=== PATIENT | female | born 1985 | race Two or more races ===

== ENCOUNTER → 2017-01-12 | Outpatient (REF) | payer BC ==
[~2017-01-12] MED LIST: MOTR200T44 PO; OSEL75CA PO
== END ==
LOC: M LAB REF 10:03
PROVIDERS: ATTEND Physician Assistant Medical
DX: J02.9 Acute pharyngitis, unspecified (principal)

== ENCOUNTER 2017-01-14 00:58 | Inpatient (IN) | payer BC ==
[~2017-01-14] VITALS: Ht 144.8 cm; Wt 48.9 kg
[2017-01-14] MEDS ORDERED: MOTR200T44 PO (01:21)
[2017-01-14] MEDS ORDERED: OSEL75CA PO (01:21)
[2017-01-14] MEDS ORDERED: LIDOCAINE W/EPINEPHRINE 1% 20ML VIAL As Ordered ONE (01:37)
[2017-01-14] MEDS ORDERED: LIDOCAINE W/EPINEPHRINE 1% 20ML VIAL SC ONE (01:45)
[2017-01-14 03:08] LABS: MEAN CORPUSCULAR HEMOGLOBIN 31.4 pg (27.0-33.0); MEAN CORPUSCULAR HGB CONC 33.6 g/dl (32.0-36.5); MEAN CORPUSCULAR VOLUME 93.6 fl (80.0-96.0); RED CELL DISTRIBUTION WIDTH 11.7 % (11.5-14.5); WHITE BLOOD COUNT 5.7 K/mm3 (4.0-10.0)
[2017-01-14 03:16] LABS: METHADONE URINE NEGATIVE (NEGATIVE)
[2017-01-14 03:48] LABS: ALBUMIN 4.1 GM/DL (3.2-5.2); ALBUMIN/GLOBULIN RATIO 1.03 (1.00-1.93); ALKALINE PHOSPHATASE 69 U/L (45-117); ALT/SGPT 29 U/L (12-78); ANION GAP 11 MEQ/L (8-16); AST/SGOT 36 U/L (15-37); BILIRUBIN,DIRECT < 0.1 MG/DL (0.0-0.2); BILIRUBIN,TOTAL 0.2 MG/DL (0.2-1.0); BLOOD UREA NITROGEN 10 MG/DL (7-18); CALCIUM LEVEL 8.4 MG/DL (8.5-10.1); CARBON DIOXIDE LEVEL 24 MEQ/L (21-32); CHLORIDE LEVEL 110 MEQ/L (98-107); CREATININE FOR GFR 0.63 MG/DL (0.55-1.02); GLOMERULAR FILTRATION RATE > 60.0 (>60); GLUCOSE, FASTING 107 MG/DL (70-105); SODIUM LEVEL 145 MEQ/L (136-145); TOTAL PROTEIN 8.1 GM/DL (6.4-8.2)
[2017-01-14] MEDS ORDERED: OSELTAMIVIR PHOSPHATE 75 MG CAP (TAMIFLU) PO ONE (18:15)
[2017-01-15] MEDS ORDERED: OSELTAMIVIR PHOSPHATE 75 MG CAP (TAMIFLU) PO ONE (05:00)
[2017-01-15 16:07] VITALS: BP 115/78
[2017-01-15] MEDS ORDERED: MOM 30ML SUSPENSION UDC PO PRN (17:45)
[2017-01-15] MEDS ORDERED: MAALOX 30 ML SUSP *UDC PO PRN (17:45)
[2017-01-15] MEDS ORDERED: IBUPROFEN 400 MG TAB PO PRN (17:45)
[2017-01-15] MEDS: TAMIFLU 75 MG PO SCH (21:10)
[2017-01-15] MEDS: traZODone 50 MG TAB PO PRN (22:37)
[2017-01-16 06:00] VITALS: BP_SYST 104; BP_SYST 108; BP_DIAS 58; BP_DIAS 59
[2017-01-16] MEDS: OSELTAMIVIR PHOSPHATE 75 MG CAP (TAMIFLU) PO SCH ×2 (09:00→21:30)
[2017-01-16] MEDS: NICOTINE 7 MG/24 HR TRANSDERMAL TD SCH (09:00)
[2017-01-16] MEDS: TAMIFLU 75 MG PO SCH (09:37)
--- NOTE | 2017-01-16 09:57 | HPEPDOC ---
Medical History and Physical Date of Admission Jan 15, 2017 at 14:02 History and Physical PCP: Sveta Stubbs WHITE KID BUFFER ATTENDING: Dr. Dontae Kaminski HPI: 31yoF admitted to [facility] for depression, being medically examined today. Patient states she was diagnosed with influenza at urgent care January 12 and started Tamiflu January 13. Initially she was experiencing symptoms of chills, headache, sore throat and cough however the symptoms have resolved. She has a laceration on her left robles with 9 sutures intact. There is currently no drainage or erythema. Denies any fevers, chills, weakness, fatigue, PEDRAZA, CP, SOB, cough, palpitations, abdominal pain, N/V/D or changes in bowel or bladder habits. PMHx: Depression Self-mutilation Chronic right knee pain PSHX: 3 prior right knee surgeries for ACL. Follows with [facility]. Uses ibuprofen as needed. MRI of right knee is pending. 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 ROS: As noted in HPI, otherwise 11pt ROS of systems reviewed and remarkable only for LMP 01/15/17 PE: GEN: 31yoF, appears stated age. Well-nourished, well developed. No acute distress. Alert and oriented x 3. Pleasant, interactive. HEENT: Normocephalic, atraumatic. Pupils are equal, round, and reactive to light. Extraocular movements are intact. No nystagmus appreciated. Sclera are nonicteric. Conjunctiva without injection. Nose midline. Nasal turbinates without bogginess. EACs both patent BL. TMs both visualized and mccallum with good cone of light, no bulging or erythema. No facial asymmetry. Moist mucous membranes. Dentition fair. Pharynx pink and moist, no cobblestoning. Neck supple , trachea midline. No lymphadenopathy or thyromegaly appreciated. CHEST: Regular rate and rhythm, +S1, +S2 LUNGS: Clear to auscultation bilaterally. No wheezes, rales, or rhonchi. Breathing appears symmetric and easy. Patient is speaking in full sentences. No accessory muscle use. ABD: Round, soft, non-tender, non-distended. +Bowel sounds throughout. No rebound or guarding. No costovertebral angle tenderness. EXT: Pulses 2+ bilaterally dorsalis pedis and radial. No lower extremity edema appreciated. SKIN: [place], dry, warm. Capillary refill <2sec. No rashes. 9 sutures intact LLE, healing well. NEURO: Alert and oriented x 3. Cranial nerves III-XII are intact. No focal deficits appreciated. EKG: Pending. A&P: 31yoF admitted to [facility] for depression 1. Psych. Plan per Psychiatry. Obtain baseline EKG to assure the safety of psychiatric medications as they can prolong the QT interval. 2. Nicotine dependence. Patch available. 3. Influenza. Finish course of Tamiflu 75 mg by mouth twice a day. 4. Follow up with PCP on discharge. 5. Add HCG to admission labs. 6. Chronic right knee pain. Continue outpatient follow-up with [facility]. Continue ibuprofen as needed. 7. Laceration. 9 Sutures intact. Healing well. Dry dressing. Tdap confirmed with [employer]. 8. Staff member, Patricia OLIVARES, present throughout exam. Vital Signs Vital Signs Label Value Date Time Patient Temperature 96.8 degrees F 01/16/17 0600 Pulse 81 01/16/17 0600 Respiratory Rate 16 bpm 01/16/17 0600 Blood Pressure Assessment 104/59 (74) 01/16/17 0600 Bedside Pulse Oximetry 97 % 01/15/17 1512 Item Value Date Time Oxygen Delivery Method Room Air 01/15/17 1607 Laboratory Data Labs 24H Item Value Date Time Salicylates Level < 1.7 MG/DL L 01/14/17 0302 Urine Opiates Screen NEGATIVE 01/14/17 0131 Urine Methadone Screen NEGATIVE 01/14/17 013 Acetaminophen Level < 2.0 UG/ML L 01/14/17 0302 Urine Barbiturates Screen NEGATIVE 01/14/17 013 Urine Phencyclidine Screen NEGATIVE 01/14/17 013 Urine Amphetamines Screen NEGATIVE 01/14/17 013 Urine Benzodiazepines Screen NEGATIVE 01/14/17 013 Urine Cocaine Metabolite Screen NEGATIVE 01/14/17 013 Urine Cannabinoids Screen NEGATIVE 01/14/17 0131 Ethyl Alcohol Level 0.296 % H 01/14/17 0302 Item Value Date Time White Blood Count 5.7 K/mm3 01/14/17 0302 Red Blood Count 4.35 M/mm3 01/14/17 0302 Hemoglobin 13.7 g/dl 01/14/17 0302 Hematocrit 40.7 % 01/14/17 0302 Mean Corpuscular Volume 93.6 fl 01/14/17 030 Mean Corpuscular Hemoglobin 31.4 pg 01/14/17 030 Mean Corpuscular Hemoglobin Concent 33.6 g/dl 01/14/17 0302 Red Cell Distribution Width 11.7 % 01/14/17 0302 Platelet Count 212 k/mm3 01/14/17 0302 Sodium Level 145 MEQ/L 01/14/17 0302 Potassium Level 4.0 MEQ/L 01/14/17 0302 Chloride Level 110 MEQ/L H 01/14/17 0302 Carbon Dioxide Level 24 MEQ/L 01/14/17 0302 Anion Gap 11 MEQ/L 01/14/17 0302 Blood Urea Nitrogen 10 MG/DL 01/14/17 0302 Creatinine 0.63 MG/DL 01/14/17 0302 Glomerular Filtration Rate > 60.0 01/14/17 0302 Fasting Glucose 107 MG/DL H 01/14/17 0302 Calcium Level 8.4 MG/DL L 01/14/17 0302 Total Bilirubin 0.2 MG/DL 01/14/17 0302 Direct Bilirubin < 0.1 MG/DL 01/14/17 0302 Aspartate Amino Transf (AST/SGOT) 36 U/L 01/14/17 0302 Alanine Aminotransferase (ALT/SGPT) 29 U/L 01/14/17 0302 Alkaline Phosphatase 69 U/L 01/14/17 0302 Total Protein 8.1 GM/DL 01/14/17 0302 Albumin 4.1 GM/DL 01/14/17 0302 Albumin/Globulin Ratio 1.03 01/14/17 0302 Thyroid Stimulating Hormone (TSH) 0.673 uIU/ML 01/14/17 030 Home Medications Scheduled Oseltamivir Phosphate (Tamiflu) 75 Mg Cap 75 MG PO BID STARTED 01/13 FOR 5 DAYS Scheduled PRN Ibuprofen (Motrin Ib) 200 Mg Tab 200 MG PO Q4H PRN PRN PAIN Allergies Coded Allergies: Sertraline (Verified Allergy, Unknown, 01/14/17) Tamia Baldwin Jan 16, 2017 09:57
[2017-01-16 10:17] LABS: CONTROL LINE HCG INT CTR LINE PRESENT
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
[2017-01-16 18:00] VITALS: BP 122/73
[2017-01-16] MEDS: traZODone 50 MG TAB PO PRN (23:09)
--- NOTE | 2017-01-17 00:44 | ECGEPIP ---
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
[2017-01-17 06:00] VITALS: BP 93/57
[2017-01-17] MEDS: NICOTINE 7 MG/24 HR TRANSDERMAL TD SCH (09:00)
[2017-01-17] MEDS: OSELTAMIVIR PHOSPHATE 75 MG CAP (TAMIFLU) PO SCH ×2 (09:23→21:13)
[2017-01-17 18:00] VITALS: BP 108/68
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
--- NOTE | 2017-01-17 22:42 | ECGEPIP ---
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
[2017-01-17] MEDS: traZODone 50 MG TAB PO PRN (23:04)
[2017-01-18 06:21] VITALS: BP 119/83
[2017-01-18] MEDS: NICOTINE 7 MG/24 HR TRANSDERMAL TD SCH (09:00)
[2017-01-18] MEDS ORDERED: NICO7PA TD (11:55)
[2017-01-18 18:00] VITALS: BP 126/88
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
[2017-01-18] MEDS: traZODone 50 MG TAB PO PRN (23:04)
[2017-01-19 06:26] VITALS: BP 104/59
[2017-01-19] MEDS: NICOTINE 7 MG/24 HR TRANSDERMAL TD SCH (08:39)
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
== END 2017-01-19 11:00 | disposition home or self-care (01) | DRG 753 ==
LOC: EDBD 00:58 → M ED 03:54 → M ED INP 01-15 14:02 → M PSY 01-15 16:02
PROVIDERS: ADMIT Psychiatry & Neurology Psychiatry; ATTEND Internal Medicine Addiction Medicine
PROC: 0HQLXZZ Repair Left Lower Leg Skin, External Approach (ICD-10-PCS; principal; 2017-01-15)
DX: F39 Unspecified mood [affective] disorder (principal); F10.10 Alcohol abuse, uncomplicated; F17.210 Nicotine dependence, cigarettes, uncomplicated; S81.812A Laceration without foreign body, left lower leg, initial encounter; X78.9XXA Intentional self-harm by unspecified sharp object, initial encounter; Y92.009 Unspecified place in unspecified non-institutional (private) residence as the place of occurrence of the external cause; F41.9 Anxiety disorder, unspecified; Z63.0 Problems in relationship with spouse or partner; M25.561 Pain in right knee; Z79.1 Long term (current) use of non-steroidal anti-inflammatories (NSAID); Z88.8 Allergy status to other drugs, medicaments and biological substances

== ENCOUNTER → 2017-02-08 | Outpatient (REF) | payer BC ==
[~2017-02-08] MED LIST changes: +NICO7PA TD
== END ==
LOC: M SFHCPLAZ 11:26
PROVIDERS: ATTEND Nurse Practitioner Family
DX: N76.0 Acute vaginitis (principal); N94.9 Unspecified condition associated with female genital organs and menstrual cycle

== ENCOUNTER → 2017-09-24 | Outpatient (CLI) | payer OTHER | LOC: M OUTALCOH 07:37 | PROVIDERS: ATTEND Psychiatry & Neurology Psychiatry | DX: Z13.9 Encounter for screening, unspecified (principal); F10.20 Alcohol dependence, uncomplicated ==

== ENCOUNTER 2017-10-05 10:43 | Outpatient (RCR) | payer OTHER | END 2017-11-04 | LOC: M OUTALCOH 10-11 16:00 | DX: F10.20 Alcohol dependence, uncomplicated (principal) ==

== ENCOUNTER → 2017-10-31 | Outpatient (CLI) | payer OTHER ==
[2017-10-31 16:42] LABS: BASO % 0.1 % (0.0-1.0); EOS # 0.1 10^3/uL (0.0-0.50); EOS % 1.2 % (0.0-3.0); IMMATURE GRANULOCYTE % 0.4 % (0-0); LYMPH # 1.6 10^3/uL (1.5-4.5); LYMPH % 19.8 % (24.0-44.0); MEAN CORPUSCULAR HEMOGLOBIN 30.9 pg (27.0-33.0); MEAN CORPUSCULAR HGB CONC 33.8 g/dl (32.0-36.5); MEAN CORPUSCULAR VOLUME 91.7 fl (80.0-96.0); MONO # 0.4 10^3/uL (0.0-0.8); MONO % 5.1 % (0.0-5.0); NEUTROPHILS # 6.1 10^3/uL (1.8-7.7); NEUTROPHILS % 73.4 % (36.0-66.0); PLATELET COUNT, AUTOMATED 246 10^3/uL (150-450); RED CELL DISTRIBUTION WIDTH 11.8 % (11.5-14.5); WHITE BLOOD COUNT 8.3 10^3/uL (4.0-10.0)
[2017-10-31 18:02] LABS: ERYTHROCYTE SEDIMENTATION RATE 56 mm/hr (0-20)
[2017-11-07 00:06] LABS: Lyme Disease IgG/IgM Antibodie <0.91 ISR (0.00-0.90); Lyme Disease IgM Ab Quantitati <0.80 index (0.00-0.79); T PALLIDUM AB (FTA-AB) Non Reactive (Non Reactive)
== END ==
LOC: M LAB 15:34
DX: H20.013 Primary iridocyclitis, bilateral (principal)
CPT/HCPCS: 82164

== ENCOUNTER 2017-11-06 16:00 | Outpatient (RCR) | payer BC, OTHER, SELFPAY | END 2017-12-05 | LOC: M OUTALCOH 11-07 16:00 | DX: F10.10 Alcohol abuse, uncomplicated (principal); F17.200 Nicotine dependence, unspecified, uncomplicated ==

== ENCOUNTER → 2017-11-20 | Outpatient (CLI) | payer BC | LOC: M WHC 15:26 | DX: Z36.9 Encounter for antenatal screening, unspecified (principal); Z3A.19 19 weeks gestation of pregnancy | CPT/HCPCS: 76811 ==

== ENCOUNTER 2017-12-07 16:33 | Outpatient (RCR) | payer BC, OTHER, SELFPAY | END 2018-01-02 | LOC: M OUTALCOH 16:33 | DX: F10.10 Alcohol abuse, uncomplicated (principal); F17.200 Nicotine dependence, unspecified, uncomplicated ==

== ENCOUNTER → 2018-01-03 | Outpatient (CLI) | payer BC ==
[2018-01-03 08:06] LABS: BASO % 0.1 % (0.0-1.0); EOS # 0.1 10^3/uL (0.0-0.50); HEMOGLOBIN 10.8 g/dl (12.0-16.0); IMMATURE GRANULOCYTE % 1.3 % (0-3.0); LYMPH # 1.5 10^3/uL (1.5-4.5); LYMPH % 16.7 % (24.0-44.0); MEAN CORPUSCULAR HEMOGLOBIN 30.3 pg (27.0-33.0); MEAN CORPUSCULAR HGB CONC 32.7 g/dl (32.0-36.5); MEAN CORPUSCULAR VOLUME 92.7 fl (80.0-96.0); MONO # 0.4 10^3/uL (0.0-0.8); MONO % 4.7 % (0.0-5.0); NEUTROPHILS # 6.7 10^3/uL (1.8-7.7); NEUTROPHILS % 76.2 % (36.0-66.0); PLATELET COUNT, AUTOMATED 229 10^3/uL (150-450); RED BLOOD COUNT 3.56 10^6/uL (4.00-5.40); RED CELL DISTRIBUTION WIDTH 12.2 % (11.5-14.5); WHITE BLOOD COUNT 8.8 10^3/uL (4.0-10.0)
[2018-01-03 08:21] LABS: GLUCOSE CHALLENGE TEST 1 HOUR 135 MG/DL (LESS THAN 140)
[2018-01-03 09:45] LABS: CHLAMYDIA DNA AMPLIFICATION NEGATIVE (NEGATIVE); GC DNA AMPLIFICATION NEGATIVE (NEGATIVE)
[2018-01-04 10:36] LABS: HBsAg Prenatal NEGATIVE (NEGATIVE)
[2018-01-04 11:02] LABS: HIV 1&2 SCREEN CENTAUR NEGATIVE (NEGATIVE)
[2018-01-04 12:18] LABS: RUBELLA IgG QUALITATIVE IMMUNE (IMMUNE)
== END ==
LOC: M LAB 06:07
DX: Z34.82 Encounter for supervision of other normal pregnancy, second trimester (principal); Z3A.00 Weeks of gestation of pregnancy not specified
CPT/HCPCS: 82950

== ENCOUNTER 2018-01-04 16:10 | Outpatient (RCR) | payer BC | END 2018-02-02 | LOC: M OUTALCOH 16:10 | DX: F10.10 Alcohol abuse, uncomplicated (principal); F17.200 Nicotine dependence, unspecified, uncomplicated ==

== ENCOUNTER → 2018-01-16 | Outpatient (CLI) | payer BC ==
[2018-01-16 06:54] LABS: GLUCOSE, FASTING 94 MG/DL (LESS THAN 95)
[2018-01-16 08:18] LABS: 1 HR GLUCOSE 159 MG/DL (LESS THAN 180)
[2018-01-16 10:03] LABS: 2 HR GLUCOSE 132 MG/DL (LESS THAN 155)
[2018-01-16 10:46] LABS: 3 HR GLUCOSE 114 MG/DL (LESS THAN 140)
== END ==
LOC: M LAB 06:19
DX: R73.02 Impaired glucose tolerance (oral) (principal)
CPT/HCPCS: 82951

== ENCOUNTER 2018-04-15 09:59 | Outpatient (CLI) | payer OTHER | END 2018-04-15 13:35 | disposition home or self-care (01) | LOC: M LDO 09:59 | DX: O47.1 False labor at or after 37 completed weeks of gestation (principal); Z3A.00 Weeks of gestation of pregnancy not specified | CPT/HCPCS: 59025 ==

== ENCOUNTER 2018-04-20 06:35 | Inpatient (IN) | payer OTHER ==
[2018-04-20] MEDS ORDERED: LR 1,000 ML IV ×2 (07:21→10:13)
[2018-04-20 08:10] LABS: HEMATOCRIT 39.6 % (36.0-47.0); HEMOGLOBIN 13.5 g/dl (12.0-15.5); MEAN CORPUSCULAR HEMOGLOBIN 29.4 pg (27.0-33.0); MEAN CORPUSCULAR HGB CONC 34.1 g/dl (32.0-36.5); MEAN CORPUSCULAR VOLUME 86.3 fl (80.0-96.0); PLATELET COUNT, AUTOMATED 201 10^3/uL (150-450); RED BLOOD COUNT 4.59 10^6/uL (4.00-5.40); RED CELL DISTRIBUTION WIDTH 12.9 % (11.5-14.5); WHITE BLOOD COUNT 12.2 10^3/uL (4.0-10.0)
[2018-04-20 08:19] LABS: TOTAL PROTEIN,RANDOM URINE 19.5 MG/DL (0.0-12.0)
[2018-04-20 08:19] LABS: CREATININE,RANDOM URINE 57.6 MG/DL
[2018-04-20 08:33] LABS: ALT/SGPT 16 U/L (12-78); AST/SGOT 22 U/L (7-37); BILIRUBIN,TOTAL 0.6 MG/DL (0.2-1.0); CREATININE FOR GFR 0.65 MG/DL (0.55-1.30); GLOMERULAR FILTRATION RATE > 60.0 (>60); LDH LACTATE DEHYDROGENASE 216 U/L (84-246)
[2018-04-20] MEDS ORDERED: FENTANYL 2MCG/ML ROPIVACAINE 0.2% IN 0.9% NACL 200ML IVBAG As Ordered (09:57)
[2018-04-20] MEDS ORDERED: OXYTOCIN DRIP 30 UNITS in APPROPRIATE DILUENT 1 EA IV (10:15)
[2018-04-20] MEDS ORDERED: FENTANYL/ROPIVACAINE/NACL BAG 200 ML EPIDURAL (10:45)
[2018-04-20] MEDS ORDERED: EPIDURAL/PCA KEYS XX (10:45)
[2018-04-20] MEDS ORDERED: NALOXONE INJ 0.4 MG/1 ML VIAL (J2310) IV (10:45)
[2018-04-20] MEDS ORDERED: REFRIGERATOR IV KEYS XX (10:45)
[2018-04-20] MEDS ORDERED: ONDANSETRON 4MG/2ML VIAL (J2405) IV (10:45)
[2018-04-20] MEDS ORDERED: diphenhydrAMINE INJ 50MG/ML VIAL (J1200) IV (10:45)
[2018-04-20] MEDS ORDERED: EPIDURAL COMMENT XX (10:45)
[2018-04-20] MEDS ORDERED: LACTATED RINGER'S 1000 ML IV (10:45)
[2018-04-20] MEDS: ePHEDrine SULFATE 25 MG/5 ML(5MG/ML) SYRINGE IV (11:01)
[2018-04-20 19:02] LABS: CORD GAS ABE A -6.8; CORD GAS HCO3 A 24.2 MEQ/L; CORD GAS PCO2 A 73.2 mmHg; CORD GAS PH A 7.137 UNITS; CORD GAS PO2 A 10.3 mmHg; CORD GAS TCO2 A 26.4 MEQ/L
[2018-04-20 19:03] LABS: CORD GAS ABE V -6.8; CORD GAS HCO3 V 23.3 MEQ/L; CORD GAS O2 SAT V 20.9 %; CORD GAS PCO2 V 65.4 mmHg; CORD GAS PH V 7.169 UNITS; CORD GAS PO2 V 14.5 mmHg; CORD GAS SBC V 17.2 MEQ/L; CORD GAS TCO2 V 25.3 MEQ/L
[2018-04-20 19:06] LABS: CORD GAS SBC A 23.6 MEQ/L
[2018-04-20 19:07] LABS: CORD GAS O2 SAT A < 15.0 %
[2018-04-20] MEDS ORDERED: ANUSOL HC CREAM 30GM TOP (19:15)
[2018-04-20] MEDS ORDERED: DIBUCAINE 1% OINTMENT 30GM TOP (19:15)
[2018-04-20] MEDS ORDERED: DOCUSATE SODIUM 100 MG CAP PO (19:15)
[2018-04-20] MEDS: IBUPROFEN 800 MG TAB PO (22:12)
[2018-04-20] MEDS: LACTATED RINGER'S 1000 ML IV (23:12)
[2018-04-20] MEDS: OXYTOCIN DRIP 30 UNITS in APPROPRIATE DILUENT 1 EA IV (23:14)
[2018-04-21] MEDS: ACETAMINOPHEN 500 MG TAB PO ×3 (03:38→18:26)
[2018-04-21] MEDS: PRENATAL VITAMINS CHEWABLE TABLET PO (07:27)
[2018-04-21] MEDS: IBUPROFEN 800 MG TAB PO ×2 (07:27→15:38)
[2018-04-22] MEDS: IBUPROFEN 800 MG TAB PO ×2 (01:43→10:15)
[2018-04-22] MEDS: MEASLES,MUMPS,RUBELLA VACCINE INJ (MMR-II) (90707) SC (07:36)
[2018-04-22] MEDS: RHOGAM 300 MCG (1500 IU) INJ (J2790) IM (07:36)
[2018-04-22] MEDS: ACETAMINOPHEN 500 MG TAB PO (07:52)
[2018-04-22] MEDS: PRENATAL VITAMINS CHEWABLE TABLET PO (08:13)
== END 2018-04-22 13:30 | disposition home or self-care (01) | DRG 560 ==
LOC: M LDO 06:35 → M LDI 06:58 → M OBS 20:54
PROC: 10D07Z6 Extraction of Products of Conception, Vacuum, Via Natural or Artificial Opening (ICD-10-PCS; principal; 2018-04-20)
PROC: 0KQM0ZZ Repair Perineum Muscle, Open Approach (ICD-10-PCS; 2018-04-20)
DX: O48.0 Post-term pregnancy (principal); O76 Abnormality in fetal heart rate and rhythm complicating labor and delivery; Z3A.41 41 weeks gestation of pregnancy; O69.1XX0 Labor and delivery complicated by cord around neck, with compression, not applicable or unspecified; O70.1 Second degree perineal laceration during delivery; Z37.0 Single live birth

== ENCOUNTER → 2019-08-06 | Outpatient (CLI) | payer MEDICAID ==
[~2019-08-06] MED LIST changes: +IBUP-1114 PO; +MAPA500T2 PO; +PRENTAB9 PO
== END ==
LOC: M OUTALCOH 08:08
PROVIDERS: ATTEND Psychiatry & Neurology Psychiatry
DX: Z03.89 Encounter for observation for other suspected diseases and conditions ruled out (principal)

== ENCOUNTER → 2019-09-07 | Outpatient (CLI) | payer MEDICAID ==
--- NOTE | 2019-09-07 11:43 | REP ---
Clinical: Cough . Comparison: 01/28/2009 . Technique: PA and lateral. Findings: The mediastinum and cardiac silhouette are normal. The lung aldana are clear and without acute consolidation, effusion, or pneumothorax. The skeletal structures are intact and normal. Impression: 1. No acute cardiopulmonary process. Electronically Signed by Manuel Montaño MD 09/07/2019 11:36 A
== END ==
LOC: M WUC 11:15
PROVIDERS: ATTEND Nurse Practitioner Family
DX: R05 Cough (principal)

== ENCOUNTER → 2020-12-29 | Outpatient (CLI) | payer MEDICAID, OTHER ==
[2020-12-29 16:46] LABS: BASO % 0.3 % (0.0-1.0); EOS # 0.1 10^3/uL (0.0-0.5); EOS % 0.8 % (0.0-3.0); HEMOGLOBIN 12.5 g/dl (12.0-15.5); LYMPH # 1.6 10^3/uL (1.5-5.0); LYMPH % 20.1 % (24.0-44.0); MEAN CORPUSCULAR HEMOGLOBIN 30.1 pg (27.0-33.0); MEAN CORPUSCULAR HGB CONC 32.9 g/dl (32.0-36.5); MEAN CORPUSCULAR VOLUME 91.6 fl (80.0-96.0); MONO # 0.4 10^3/uL (0.0-0.8); MONO % 5.2 % (2.0-8.0); NEUTROPHILS # 5.7 10^3/uL (1.5-8.5); NEUTROPHILS % 73.1 % (36.0-66.0); PLATELET COUNT, AUTOMATED 241 10^3/uL (150-450); RED BLOOD COUNT 4.15 10^6/uL (4.00-5.40); WHITE BLOOD COUNT 7.8 10^3/uL (4.0-10.0)
[2020-12-29 16:58] LABS: ALBUMIN 3.8 GM/DL (3.2-5.2); ALT/SGPT 28 U/L (12-78); BILIRUBIN,TOTAL 0.3 MG/DL (0.2-1.0); BLOOD UREA NITROGEN 11 MG/DL (7-18); CALCIUM LEVEL 9.4 MG/DL (8.5-10.1); CARBON DIOXIDE LEVEL 28 MEQ/L (21-32); CHLORIDE LEVEL 104 MEQ/L (98-107); CREATININE FOR GFR 0.58 MG/DL (0.55-1.30); GLOMERULAR FILTRATION RATE > 60.0 (>60); GLUCOSE, FASTING 105 MG/DL (70-100); POTASSIUM SERUM 4.2 MEQ/L (3.5-5.1); SODIUM LEVEL 138 MEQ/L (136-145); THYROID STIMULATING HORMONE < 0.005 uIU/ML (0.358-3.740); TOTAL PROTEIN 7.5 GM/DL (6.4-8.2)
== END ==
LOC: M WUC 13:28
PROVIDERS: ATTEND Physician Assistant
DX: O99.891 Other specified diseases and conditions complicating pregnancy (principal); R42 Dizziness and giddiness; O26.811 Pregnancy related exhaustion and fatigue, first trimester; Z3A.00 Weeks of gestation of pregnancy not specified

== ENCOUNTER → 2021-06-22 | Outpatient (REF) | payer OTHER ==
[2021-06-22 22:53] LABS: APPEARANCE, URINE HAZY (CLEAR); BACTERIA, URINE AUTO 1+ (NEGATIVE); BILIRUBIN, URINE AUTO NEGATIVE (NEGATIVE); BLOOD, URINE BLOOD NEGATIVE (NEGATIVE); COLOR, URINE YELLOW (YELLOW); GLUCOSE, URINE (UA) AUTO NEGATIVE (NEGATIVE); KETONE, URINE AUTO TRACE mg/dL (NEGATIVE); LEUKOCYTE ESTERASE, URINE AUTO TRACE (NEGATIVE); MUCUS, URINE SMALL (NEGATIVE); NITRITE, URINE AUTO NEGATIVE (NEGATIVE); PROTEIN, URINE AUTO 1+ mg/dL (NEGATIVE); RBC, URINE AUTO 5 /HPF (0-3); SPECIFIC GRAVITY URINE AUTO 1.025 (1.002-1.035); SQUAMOUS EPITHELIAL CELL UR AU 9 /HPF (0-6); WBC, URINE AUTO 23 /HPF (0-3)
== END ==
LOC: M LAB REF 22:29
PROVIDERS: ATTEND Physician Assistant
DX: N39.0 Urinary tract infection, site not specified (principal)

== ENCOUNTER 2022-07-02 21:13 | Emergency (ER) | payer MEDICAID, OTHER ==
[~2022-07-02] VITALS: Ht 146.1 cm; Wt 45.7 kg
[2022-07-02] MEDS ORDERED: IBUP200C88 PO (21:22)
[2022-07-02 22:03] LABS: BASO % 0.3 % (0.0-1.0); EOS # 0.1 10^3/uL (0.0-0.5); EOS % 1.1 % (0.0-3.0); HEMATOCRIT 37.1 % (36.0-47.0); HEMOGLOBIN 12.5 g/dl (12.0-15.5); LYMPH # 2.3 10^3/uL (1.5-5.0); LYMPH % 35.7 % (24.0-44.0); MEAN CORPUSCULAR HEMOGLOBIN 30.2 pg (27.0-33.0); MEAN CORPUSCULAR HGB CONC 33.7 g/dl (32.0-36.5); MEAN CORPUSCULAR VOLUME 89.6 fl (80.0-96.0); MONO # 0.5 10^3/uL (0.0-0.8); MONO % 7.4 % (2.0-8.0); NEUTROPHILS # 3.5 10^3/uL (1.5-8.5); NEUTROPHILS % 55.3 % (36.0-66.0); PLATELET COUNT, AUTOMATED 268 10^3/uL (150-450); RED BLOOD COUNT 4.14 10^6/uL (4.00-5.40); WHITE BLOOD COUNT 6.3 10^3/uL (4.0-10.0)
[2022-07-02 22:33] LABS: BLOOD UREA NITROGEN 13 MG/DL (7-18); CALCIUM LEVEL 8.2 MG/DL (8.5-10.1); CARBON DIOXIDE LEVEL 23 MEQ/L (21-32); CHLORIDE LEVEL 114 MEQ/L (98-107); CREATININE FOR GFR 0.91 MG/DL (0.55-1.30); GLOMERULAR FILTRATION RATE > 60.0 (>60); GLUCOSE, FASTING 109 MG/DL (70-100); MAGNESIUM LEVEL 1.8 MG/DL (1.8-2.4); POTASSIUM SERUM 3.3 MEQ/L (3.5-5.1); SODIUM LEVEL 143 MEQ/L (136-145)
[2022-07-02] MEDS ORDERED: ISOVUE-370 76% 100ML VIAL As Ordered ONE (22:35)
[2022-07-02 22:38] LABS: INR 1.13; PARTIAL THROMBOPLASTIN TIME 31.4 SECONDS (25.9-37.0); PROTHROMBIN TIME 14.9 SECONDS (12.7-14.5)
[2022-07-02] MEDS ORDERED: POTASSIUM CHLORIDE 10MEQ SR TABLET PO ONE (22:45)
[2022-07-02 22:52] LABS: HCG, SERUM QUALITATIVE NEGATIVE (NEGATIVE)
[2022-07-03 00:14] LABS: CPK CREATINE PHOSPHOKINASE 138 U/L (26-192)
[2022-07-03 00:15] LABS: CK-MB VALUE MASS < 1.0 NG/ML (<3.6); MB/CK RELATIVE INDEX 0.72 (< OR =4)
[2022-07-03 00:28] VITALS: BP 105/72
== END 2022-07-03 00:50 | disposition home or self-care (01) ==
LOC: M ED 21:13
DX: J98.2 Interstitial emphysema (principal); Z88.8 Allergy status to other drugs, medicaments and biological substances; Z91.048 Other nonmedicinal substance allergy status
CPT/HCPCS: 36415; 71046; 71275; 80048; 82550; 82553; 83735; 84703; 85025; 85610; 85730; 87486; 87581; 87633; 87798; 93005; 99284; Q9967

== ENCOUNTER → 2022-07-27 | Outpatient (REF) ==
[~2022-07-27] MED LIST changes: +IBUP200C88 PO
[2022-07-27 13:58] LABS: RSV AMPLIFICATION NEGATIVE (NEGATIVE)
== END ==
LOC: M LABSMTC 10:48
PROVIDERS: ATTEND Family Medicine
DX: Z20.822 Contact with and (suspected) exposure to COVID-19 (principal)

== ENCOUNTER → 2022-08-16 | Outpatient (REF) | payer OTHER | LOC: M PLALAB 11:38 | PROVIDERS: ATTEND Nurse Practitioner Family | DX: Z12.4 Encounter for screening for malignant neoplasm of cervix (principal) ==

== ENCOUNTER → 2022-09-01 | Outpatient (CLI) | payer OTHER | LOC: M WHC 07:39 | PROVIDERS: ATTEND Obstetrics & Gynecology | DX: D25.9 Leiomyoma of uterus, unspecified (principal); N93.9 Abnormal uterine and vaginal bleeding, unspecified ==

== ENCOUNTER → 2022-09-11 | Outpatient (REF) ==
[2022-09-11 10:43] LABS: RSV AMPLIFICATION POSITIVE (NEGATIVE)
== END ==
LOC: M LABSMTC 10:10
PROVIDERS: ATTEND Family Medicine
DX: Z11.52 Encounter for screening for COVID-19 (principal)

== ENCOUNTER → 2022-09-14 | Outpatient (CLI) | payer OTHER | LOC: M PLAIMG 09:38 | PROVIDERS: ATTEND Physician Assistant | DX: J20.5 Acute bronchitis due to respiratory syncytial virus (principal) ==

== ENCOUNTER → 2022-11-22 | Outpatient (REF) | payer OTHER | LOC: M SFHCPLAZ 14:48 | PROVIDERS: ATTEND Internal Medicine Hematology | DX: J01.00 Acute maxillary sinusitis, unspecified (principal) ==

== ENCOUNTER → 2022-12-15 | Outpatient (REF) ==
[2022-12-15 11:41] LABS: RSV AMPLIFICATION NEGATIVE (NEGATIVE)
== END ==
LOC: M EMP 08:46
PROVIDERS: ATTEND Family Medicine
DX: Z11.59 Encounter for screening for other viral diseases (principal)

== ENCOUNTER → 2023-09-26 | Outpatient (REF) | payer OTHER | LOC: M SFHCPLAZ 17:04 | PROVIDERS: ATTEND Internal Medicine Hematology | DX: Z79.891 Long term (current) use of opiate analgesic (principal) ==

== ENCOUNTER 2023-12-28 06:07 | Day surgery (SDC) | payer OTHER ==
[~2023-12-28] VITALS: Ht 144.8 cm; Wt 55.8 kg
[~2023-12-28 06:07] MED LIST changes: +ALPR0.25 PO; +LR 1,000 ML IV SCH; +ceFAZolin SOD 2 GM in IV 1 EA IV ONE
[2023-12-28] MEDS ORDERED: LR 1,000 ML IV SCH ×2 (06:15→09:35)
[2023-12-28] MEDS ORDERED: propofoL 200 MG/20 ML VIAL As Ordered ONE (07:21)
[2023-12-28] MEDS ORDERED: fentaNYL 250 MCG/5 ML INJECTION As Ordered ONE (07:21)
[2023-12-28] MEDS ORDERED: LIDOCAINE 2% 100MG/5ML SDV (FOR ANES.) As Ordered ONE (07:21)
[2023-12-28] MEDS ORDERED: dexmedeTOMIDine (4MCG/ML)200MCG/50ML BTL (PRECEDEX) As Ordered ONE (07:21)
[2023-12-28] MEDS ORDERED: ROCURONIUM BROMIDE 50MG/5ML VIAL As Ordered ONE (07:21)
[2023-12-28] MEDS ORDERED: ONDANSETRON 4MG 2ML VIAL As Ordered ONE (07:21)
[2023-12-28] MEDS ORDERED: MIDAZOLAM INJ 2MG/2ML VIAL As Ordered ONE (07:22)
[2023-12-28] MEDS: ceFAZolin SOD 2 GM in IV 1 EA IV ONE (08:00)
[2023-12-28 08:02] LABS: HEMATOCRIT 39.7 % (36.0-47.0); HEMOGLOBIN 13.6 g/dl (12.0-15.5); MEAN CORPUSCULAR HEMOGLOBIN 30.8 pg (27.0-33.0); MEAN CORPUSCULAR HGB CONC 34.3 g/dl (32.0-36.5); MEAN CORPUSCULAR VOLUME 89.8 fl (80.0-96.0); PLATELET COUNT, AUTOMATED 215 10^3/uL (150-450); RED BLOOD COUNT 4.42 10^6/uL (4.00-5.40); WHITE BLOOD COUNT 6.3 10^3/uL (4.0-10.0)
[2023-12-28] MEDS ORDERED: PHENYLephrine 500MCG 5ML (100MCG/ML) SYRINGE As Ordered ONE (08:05)
[2023-12-28] MEDS ORDERED: KETOROLAC 60MG 2ML VIAL As Ordered ONE (08:52)
[2023-12-28] MEDS ORDERED: SUGAMMADEX SODIUM 500 MG/5 ML VIAL (BRIDION) As Ordered ONE (08:52)
[2023-12-28] MEDS ORDERED: ACETAMINOPHEN 1000MG 100ML IV BAG As Ordered ONE (08:52)
[2023-12-28] MEDS: METHYLENE BLUE 0.5% (5MG/ML) 10 ML AMP (PROVAYBLUE) As Ordered ONE (08:58)
[2023-12-28] MEDS ORDERED: ESMOLOL INJ 100MG/10ML VIAL As Ordered ONE (09:26)
[2023-12-28] MEDS ORDERED: ONDANSETRON 4MG 2ML VIAL IV PRN ×2 (09:35→09:40)
[2023-12-28] MEDS ORDERED: PROMETHAZINE 25MG/ML 1ML VIAL IV PRN (09:35)
[2023-12-28] MEDS ORDERED: PERCOCET 5MG/325MG TAB PO PRN (09:35)
[2023-12-28] MEDS ORDERED: MORPHINE 4 MG/ML 1ML VIAL IV PRN (09:35)
[2023-12-28] MEDS ORDERED: PERCOCET PO (09:42)
[2023-12-28] MEDS ORDERED: COLA100C5 PO (09:42)
[2023-12-28] MEDS ORDERED: IBUP80TA PO (09:42)
[2023-12-28] MEDS: fentaNYL 100 MCG/2 ML INJECTION IV PRN (09:59)
[2023-12-28 10:09] LABS: HCG, SERUM QUALITATIVE NEGATIVE (NEGATIVE)
[2023-12-28] MEDS: oxyCODONE 5MG TAB PO PRN (10:18)
[2023-12-28] MEDS: MORPHINE 2 MG/ML 1ML VIAL IV PRN (10:25)
[2023-12-28 11:50] VITALS: BP 98/65; TEMP 97.3; O2SAT 97
[2023-12-28] MEDS: PERCOCET 5MG/325MG TAB PO PRN (13:18)
[2023-12-28] MEDS ORDERED: KETOROLAC 30 MG/ML 1ML VIAL IV SCH (16:00)
[2023-12-28] MEDS ORDERED: DOCUSATE SODIUM 100MG CAPSULE PO SCH (21:00)
[2023-12-29] MEDS ORDERED: IBUPROFEN 800 MG TAB PO SCH (18:00)
== END 2023-12-28 15:55 | disposition home or self-care (01) ==
LOC: M SDC 06:07 → M MS5PR 11:25 → M SDC 15:55
PROVIDERS: ATTEND Obstetrics & Gynecology
DX: D25.2 Subserosal leiomyoma of uterus (principal); N93.9 Abnormal uterine and vaginal bleeding, unspecified; N80.03 Adenomyosis of the uterus; R10.2 Pelvic and perineal pain; F41.9 Anxiety disorder, unspecified; Z79.899 Other long term (current) drug therapy; Z88.8 Allergy status to other drugs, medicaments and biological substances
CPT/HCPCS: 36415; 58571; 81025; 84703; 85027; 86850; 86900; 86901; 88307; J0131; J0665; J0690; J1100; J1805; J1885; J2250; J2371; J2405; J3010; Q9968; S2900